=== PATIENT | male | born 1950 | race Caucasian/White ===

== ENCOUNTER 2019-06-19 16:34 | Observation (INO) | payer MEDICARE ==
[2019-06-19] MEDS ORDERED: Aspirin 325 MG TAB ONE (17:21)
--- NOTE | 2019-06-19 17:58 | RAD ---
PORTABLE CHEST: 06/19/19 HISTORY: Elevated blood pressure. Diffuse body numbness. Heart size and mediastinum are within normal limits. The lungs are clear of any infiltrative process. Postoperative changes of the right shoulder are seen. IMPRESSION: No active intrathoracic disease. POS: [facility]
--- NOTE | 2019-06-19 18:00 | CT ---
CT OF BRAIN PERFORMED WITHOUT CONTRAST ENHANCEMENT: 06/19/19 HISTORY: Diffuse numbness over body and feet. Generalized ventricular and sulcal prominence. There is no signs of intracerebral hemorrhage or extra -axial fluid collections. Mastoid air cells are clear. There is moderate bilateral ethmoid and spheno id as well as maxillary sinus mucosal changes. Small air fluid level seen in the maxillary sinuses. IMPRESSION: 1. Sinus disease. 2. No acute intracranial abnormalities. POS: [facility]
[2019-06-19 18:01] LABS: #Basophils 0.1 thou/uL (0.0-0.2); #Eosinphils 0.4 thou/uL (0.0-0.7); #Lymphocytes 3.2 thou/uL (1.20-3.40); #Monocytes 1.3 thou/uL (0.11-0.59); #Neutrophils 11.4 thou/uL (1.40-6.50); %Basophils 0.8 % (0.0-1.0); %Eosinophils 2.3 % (0.0-10.0); %Lymphocytes 19.6 % (21.0-51.0); %Monocytes 7.8 % (0.0-10.0); %Neutrophils 69.4 % (42.0-75.0); Hemoglobin 15.6 g/dL (14.0-18.0); Mean Corpuscular HGB CONC 32.9 g/dL (32.0-36.0); Mean Corpuscular Hemoglobin 30.9 pg (27.0-31.0); Mean Corpuscular Volume 94.1 fL (78.0-98.0); Mean Platelet Volume 8.4 fL (7.4-10.4); Platelet Count 202 thou/uL (130-400); Red Blood Cell (RBC) Count 5.04 mill/uL (4.70-6.10); White Blood Cell (WBC) Count 16.5 thou/uL (4.8-10.8)
[2019-06-19 18:05] LABS: Prothrombin Time 13.1 SEC (12.0-14.7)
[2019-06-19 18:36] LABS: ALT (SGPT) 23 U/L (8-55); AST (SGOT) 24 U/L (5-34); Albumin 4.3 g/dL (3.4-4.8); Alkaline Phosphatase 54 U/L (40-110); Anion Gap 16 mmol/L (10-20); BUN (Urea Nitrogen) 14 mg/dL (8.4-25.7); Bilirubin, Total 0.6 mg/dL (0.2-1.2); Calc. Creatinine Clearance 0 mL/min (70-130); Calcium 9.4 mg/dL (7.8-10.44); Carbon Dioxide 23 mmol/L (23-31); Chloride 99 mmol/L (98-107); Estimated GFR-MDRD 61; Globulin 2.5 g/dL (2.4-3.5); Glucose 91 mg/dL (80-115); Potassium 4.7 mmol/L (3.5-5.1); Protein, Total 6.8 g/dL (5.8-8.1); Sodium 133 mmol/L (136-145)
[2019-06-19 21:26] LABS: Troponin I Less than 0.010 ng/mL (< 0.028)
[2019-06-20 00:01] VITALS: BMI 27.8
[2019-06-20 00:06] LABS: Troponin I Less than 0.010 ng/mL (< 0.028)
[2019-06-20] MEDS ORDERED: Acetaminophen 650 MG Suppository PR PRN (01:20)
[2019-06-20] MEDS ORDERED: Acetaminophen 325 MG TAB PO PRN ×3 (01:20→08:08)
[2019-06-20] MEDS ORDERED: risperiDONE 1 MG TAB PO SCH ×2 (02:00→21:00)
[2019-06-20] MEDS ORDERED: ACETAMINOPHEN PO PRN (07:49)
[2019-06-20] MEDS ORDERED: Non-Formulary Item 1 EACH (Loperamide Hcl [Loperamide] 2 MG) PO PRN (07:49)
[2019-06-20] MEDS ORDERED: traMADol HCl 50 MG TAB PO PRN (07:49)
[2019-06-20] MEDS ORDERED: Loperamide HCl 2 MG CAP PO PRN (08:09)
[2019-06-20] MEDS ORDERED: Gabapentin 300 MG CAP PO SCH (09:00)
[2019-06-20] MEDS ORDERED: Prevnar 13-Val Conj/PF 0.5 ML SYRINGE IM ONE (09:00)
[2019-06-20] MEDS ORDERED: FLU VACC TS2019-20(65YR UP)/PF 180 MCG/0.5 ML SYRINGE IM ONE (09:00)
[2019-06-20] MEDS ORDERED: Stress 600 With Zinc 1 TAB PO SCH (09:00)
[2019-06-20] MEDS ORDERED: Enoxaparin Sodium 40 MG/0.4 ML SYRINGE SC SCH (09:00)
[2019-06-20] MEDS ORDERED: Bupropion 150 MG XL TAB PO SCH (09:00)
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
[2019-06-20] MEDS ORDERED: B COMPLEX WITH VITAMIN C PO SCH (11:30)
[2019-06-20] MEDS: Propranolol 40 MG TAB PO SCH ×2 (12:40→16:51)
[2019-06-20 16:34] VITALS: BP 121/74; TEMP 98
--- NOTE | 2019-06-20 20:03 | DIS ---
DATE OF ADMISSION: 06/19/2019 DATE OF DISCHARGE: 06/20/2019 FINAL DIAGNOSES: At the time of discharge; 1. Bradycardia, resolved, secondary to beta-milagros overdose. 2. Hypertensive urgency after the patient had energy drink ingestion, resolved. 3. Suicidal thoughts. The patient met with [facility] and he is scheduled for followup with local psychiatrist in a week. 4. Anxiety disorder. 5. Bipolar disorder. 6. History of pancreatitis. 7. History of fatty liver. HOSPITAL COURSE: The patient is a 68-year-old male, who was admitted to the hospital after he ingested a can of energy drink, which he purchased in [place] yesterday morning and subsequently, he started having some numbness all over his body and sweating profusely and blood pressure went up to more than 200 systolic and the patient developed some headache. He was taken to the emergency room by EMS. He was started on atropine by EMS and while in the emergency room, his pulse was down to 48, then gradually recovered to 60. He got admitted to the hospital for further evaluation of his problem. At the time of evaluation in the morning, his blood pressure was down to 113/67 and pulse was 68. The patient got admitted to the hospital. [facility] was consulted. His psychiatrist is apparently in [facility] and [facility] recommended to do follow up with local psychiatrist in a week, which is set up. The patient is doing well. He does not have much complaints to offer. His pulse is up to 70, blood pressure is 98/70, temperature is 98.8, respiratory rate is 16, and O2 saturation is 94% on room air. He is seen and examined before his discharge. His medications are not changed. He is going to continue the same regimen what he was taking at home with vitamin B complex once a day; propranolol 40 mg starting tomorrow; bupropion 150 mg once a day; gabapentin 300 mg twice a day; fluvoxamine, which is Luvox 100 mg at bedtime, risperidone 1 mg at bedtime; and Tylenol p.r.n. He will follow up with the primary doctor in a week and approximately in a week, he should see also a psychiatrist. We set him up for an appointment with that doctor. Job ID: [id number]
== END 2019-06-20 16:55 | disposition home or self-care (01) ==
LOC: ERS 16:34 → 2SE 19:36
PROVIDERS: ADMIT Internal Medicine; ATTEND Internal Medicine
DX: T44.7X1A Poisoning by beta-adrenoreceptor antagonists, accidental (unintentional), initial encounter (principal); R00.1 Bradycardia, unspecified; T78.1XXA Other adverse food reactions, not elsewhere classified, initial encounter; I16.0 Hypertensive urgency; R20.0 Anesthesia of skin; R45.851 Suicidal ideations; F41.9 Anxiety disorder, unspecified; F31.9 Bipolar disorder, unspecified; F10.11 Alcohol abuse, in remission; Z87.891 Personal history of nicotine dependence; Z79.899 Other long term (current) drug therapy
CPT/HCPCS: 36415; 70450; 71045; 80053; 84484; 85025; 85610; 93005; 96372; G0378; J1650

== ENCOUNTER 2021-04-25 16:37 | Observation (INO) | payer MEDICARE ==
[2021-04-26 15:12] VITALS: BMI 28.9
[2021-04-26] MEDS ORDERED: Zolpidem Tartrate 5 MG TAB PO PRN (15:52)
[2021-04-26] MEDS ORDERED: Senokot S 8.6-50 MG TAB PO PRN (15:52)
[2021-04-26] MEDS ORDERED: Loperamide HCl 2 MG CAP PO PRN (15:52)
[2021-04-26] MEDS ORDERED: Ondansetron PF 4 MG/2 ML Vial IVP PRN (15:52)
[2021-04-26] MEDS ORDERED: Calcium Carbonate 500 MG ChewTAB PO PRN (15:52)
[2021-04-26] MEDS ORDERED: Ondansetron ODT 4 MG TAB PO PRN (15:52)
[2021-04-26] MEDS ORDERED: Bisacodyl 10 MG SUPP PR PRN (15:52)
[2021-04-26] MEDS ORDERED: Acetaminophen 325 MG TAB PO PRN (15:52)
[2021-04-26] MEDS ORDERED: Guaifenesin DM 100-10/5 ML UDCUP PO PRN (15:52)
[2021-04-26] MEDS: cefTRIAXone\\ROCEPHIN 1 GM in Sodium Chloride 0.9% 100 ML IVPB SCH (17:23)
[2021-04-26] MEDS: Famotidine 20 MG TAB PO SCH (20:51)
[2021-04-26] MEDS: 1/2 NS w/KCL 20 mEq 1,000 ML IV SCH (20:52)
[2021-04-27] MEDS: 1/2 NS w/KCL 20 mEq 1,000 ML IV SCH ×3 (05:29→15:32)
[2021-04-27 05:58] LABS: Hemoglobin 14.3 g/dL (14.0-18.0); Mean Corpuscular HGB CONC 33.9 g/dL (32.0-36.0); Mean Corpuscular Volume 97.3 fL (78.0-98.0); Mean Platelet Volume 7.6 fL (7.4-10.4); Platelet Count 207 thou/uL (130-400); Red Blood Cell (RBC) Count 4.32 mill/uL (4.70-6.10)
[2021-04-27 06:13] LABS: ALT (SGPT) 59 U/L (8-55); AST (SGOT) 67 U/L (5-34); Albumin 3.5 g/dL (3.4-4.8); Alkaline Phosphatase 48 U/L (40-110); Anion Gap 11 mmol/L (10-20); BUN (Urea Nitrogen) 10 mg/dL (8.4-25.7); Bilirubin, Total 0.3 mg/dL (0.2-1.2); Calc. Creatinine Clearance 103 mL/min (70-130); Calcium 8.6 mg/dL (7.8-10.44); Carbon Dioxide 23 mmol/L (23-31); Chloride 109 mmol/L (98-107); Globulin 2.9 g/dL (2.4-3.5); Glucose 93 mg/dL (80-115); Potassium 3.7 mmol/L (3.5-5.1); Protein, Total 6.4 g/dL (5.8-8.1); Sodium 139 mmol/L (136-145)
[2021-04-27 08:29] LABS: Band 16 % (5-11); Eosinophils 7 % (0-10); Lymphocytes 30 % (21-51); MDiff Complete? YES; Monocytes 13 % (0-10); Neutrophil 27 % (42-75); Platelet Morphology Comment Appears Adequate; RBC Morphology Normal; Reactive Lymphocytes 7 % (0-10)
[2021-04-27] MEDS: Multivitamin W/ Minerals 1 TAB PO SCH (09:00)
[2021-04-27] MEDS: Thiamine 100 MG TAB PO SCH (09:00)
[2021-04-27] MEDS: Folic Acid 1 MG TAB PO SCH (09:00)
[2021-04-27] MEDS: Famotidine 20 MG TAB PO SCH ×2 (09:00→21:16)
[2021-04-27] MEDS: Cyanocobalamin (Vitamin B-12) 1,000 MCG TAB PO SCH (09:00)
[2021-04-27] MEDS ORDERED: hydrOXYzine 25 MG TAB PO PRN (10:09)
[2021-04-27] MEDS ORDERED: cloNIDine 0.1 MG TAB PO PRN (10:12)
[2021-04-27] MEDS ORDERED: Bupropion 150 MG XL TAB PO SCH (10:15)
[2021-04-27] MEDS ORDERED: Potassium Chloride 20 MEQ TAB PO SCH ×2 (10:15→17:00)
[2021-04-27] MEDS ORDERED: Propranolol 10 MG TAB PO SCH (10:15)
[2021-04-27] MEDS ORDERED: Promethazine 25 MG TAB PO PRN (10:31)
[2021-04-27] MEDS: Propranolol 10 MG TAB PO SCH ×2 (15:11→21:16)
[2021-04-27] MEDS: cefTRIAXone\\ROCEPHIN 1 GM in Sodium Chloride 0.9% 100 ML IVPB SCH (17:56)
[2021-04-27] MEDS ORDERED: Saccharomyces boulardii 250 MG CAP PO SCH (21:00)
[2021-04-27] MEDS ORDERED: risperiDONE 1 MG TAB PO SCH (21:00)
[2021-04-28] MEDS: 1/2 NS w/KCL 20 mEq 1,000 ML IV SCH ×2 (04:27→08:49)
[2021-04-28 05:48] VITALS: TEMP 97.9
[2021-04-28 05:58] LABS: Hemoglobin 13.8 g/dL (14.0-18.0); Mean Corpuscular HGB CONC 32.2 g/dL (32.0-36.0); Mean Corpuscular Hemoglobin 31.5 pg (27.0-31.0); Mean Corpuscular Volume 97.9 fL (78.0-98.0); Mean Platelet Volume 7.7 fL (7.4-10.4); Platelet Count 215 thou/uL (130-400); RBC Distribution Width 12.1 % (11.5-14.5); Red Blood Cell (RBC) Count 4.38 mill/uL (4.70-6.10); White Blood Cell (WBC) Count 7.5 thou/uL (4.8-10.8)
[2021-04-28 06:17] LABS: ALT (SGPT) 51 U/L (8-55); AST (SGOT) 54 U/L (5-34); Albumin 3.5 g/dL (3.4-4.8); Alkaline Phosphatase 46 U/L (40-110); Anion Gap 11 mmol/L (10-20); BUN (Urea Nitrogen) 11 mg/dL (8.4-25.7); Bilirubin, Total 0.3 mg/dL (0.2-1.2); Calc. Creatinine Clearance 106 mL/min (70-130); Carbon Dioxide 26 mmol/L (23-31); Chloride 108 mmol/L (98-107); Globulin 2.9 g/dL (2.4-3.5); Glucose 87 mg/dL (80-115); Potassium 4.2 mmol/L (3.5-5.1); Protein, Total 6.4 g/dL (5.8-8.1); Sodium 141 mmol/L (136-145)
[2021-04-28 06:27] LABS: Band 8 % (5-11); Eosinophils 4 % (0-10); Lymphocytes 39 % (21-51); MDiff Complete? YES; Monocytes 11 % (0-10); Neutrophil 34 % (42-75); Reactive Lymphocytes 4 % (0-10)
[2021-04-28] MEDS: Folic Acid 1 MG TAB PO SCH (08:52)
[2021-04-28] MEDS: Thiamine 100 MG TAB PO SCH (08:52)
[2021-04-28] MEDS: Famotidine 20 MG TAB PO SCH (08:52)
[2021-04-28] MEDS: Multivitamin W/ Minerals 1 TAB PO SCH (08:52)
[2021-04-28] MEDS: Cyanocobalamin (Vitamin B-12) 1,000 MCG TAB PO SCH (08:53)
[2021-04-28] MEDS ORDERED: Bupropion 150 MG XL TAB PO SCH (09:00)
[2021-04-28 11:03] VITALS: BP 109/70
== END 2021-04-28 11:43 | disposition home or self-care (01) ==
LOC: T4-A 04-26 14:24
PROVIDERS: ADMIT Internal Medicine; ATTEND Internal Medicine
DX: A04.4 Other intestinal Escherichia coli infections (principal); A41.9 Sepsis, unspecified organism; K52.9 Noninfective gastroenteritis and colitis, unspecified; F10.139 Alcohol abuse with withdrawal, unspecified; E87.6 Hypokalemia; E87.2 Acidosis; D64.9 Anemia, unspecified; D70.9 Neutropenia, unspecified; Z79.899 Other long term (current) drug therapy
CPT/HCPCS: 36415; 80053; 85025; 93005; 93010; 96374; 96376; G0378; J0696; J3480; J3490

== ENCOUNTER 2022-11-30 08:45 | Day surgery (SDC) | payer MEDICARE ==
[2022-11-20 11:14] VITALS: BMI 27.1
[2022-11-30] MEDS ORDERED: fentaNYL PF 100 MCG/2 ML SYRINGE ONE (11:42)
[2022-11-30] MEDS ORDERED: Ondansetron PF 4 MG/2 ML Vial ONE (11:58)
[2022-11-30] MEDS ORDERED: PROPOFOL 200 MG/20 ML VIAL ONE (11:58)
[2022-11-30] MEDS ORDERED: ePHEDrine Sulfate 50 MG/10 ML VIAL ONE (11:58)
[2022-11-30] MEDS ORDERED: PHENYLEPHRINE-NS 100 MCG/ML 10 ML SYRINGE ONE (11:58)
[2022-11-30] MEDS ORDERED: Levofloxacin 500 mg/D5W 100 ml Premix Bag ONE (12:03)
[2022-11-30] MEDS ORDERED: Oxybutynin 5 MG TAB ONE (13:07)
== END 2022-11-30 14:11 | disposition home or self-care (01) ==
LOC: SDC 08:45
PROVIDERS: ATTEND Urology
PROC: 0V508ZZ Destruction of Prostate, Via Natural or Artificial Opening Endoscopic (ICD-10-PCS; principal; 2022-11-30)
DX: N40.1 Benign prostatic hyperplasia with lower urinary tract symptoms (principal); F10.10 Alcohol abuse, uncomplicated; E78.5 Hyperlipidemia, unspecified; F31.9 Bipolar disorder, unspecified; Y90.9 Presence of alcohol in blood, level not specified
CPT/HCPCS: J1956; J2405; J2704